=== PATIENT | female | born 1975 | race Caucasian/White ===

== ENCOUNTER 2019-01-29 11:01 | Emergency (ER) | payer MEDICAID ==
[2019-01-29] MEDS: ONDANSETRON (ODT) 4 MG TAB ODT (13:55)
[2019-01-29] MEDS: KETOROLAC 60 MG INJ IM (14:19)
== END 2019-01-29 15:32 | disposition home or self-care (01) ==
LOC: FTE 11:01
DX: M25.521 Pain in right elbow (principal); J02.9 Acute pharyngitis, unspecified
CPT/HCPCS: 73080; 73080-RT; 81025; 96372; 99284-25